=== PATIENT | female | born 1940 | race Caucasian/White ===

== ENCOUNTER → 2017-03-18 | Outpatient (CLI) | payer OTHER ==
[2017-03-18 14:48] LABS: URINE APPEARANCE CLOUDY; URINE BILIRUBIN NEG (NEG); URINE BLOOD NEG (NEG); URINE COLOR YELLOW; URINE GLUCOSE 100 MG/DL (NEG); URINE KETONE NEG (NEG); URINE LEUKOCYTE ESTERASE NEG (NEG); URINE NITRATE NEG (NEG); URINE PH 5.5 (5-8); URINE PROTEIN 3+ (NEG); URINE SPECIFIC GRAVITY 1.024 (1.003-1.035); URINE UROBILINOGEN 0.2 MG/DL (NEG)
[2017-03-18 14:51] LABS: URINE SQUAMOUS EPITHELIAL CELL MOD /[HPF]
[2017-03-18 15:15] LABS: BUN/CREATININE RATIO 8.18; CALCIUM SERUM 8.8 mg/dL (8.4-10.2); CREATININE SERUM 4.4 mg/dL (0.6-1.4); GLOM FILT RATE Estimated 9.1 mL/min (>60); MAGNESIUM 1.9 mg/dL (1.6-3.0); POTASSIUM 4.3 mmol/L (3.5-5.1)
[2017-03-18 15:24] LABS: IRON SERUM 45 ug/dL (28-170); TOTAL IRON BINDING CAPACITY 314 ug/dL (269-535); TRANSFERRIN 224 mg/dL (192-382); TRANSFERRIN SATURATION 14 % (20-50)
[2017-03-18 15:44] LABS: URINE SOURCE CLEAN CATCH
[2017-03-18 15:45] LABS: URINE BACTERIA AUWI 1+ (NEGATIVE)
[2017-03-18 15:46] LABS: U HYALINE CASTS AUWI 0-2 /[LPF]; URINE GRANULAR CAST 0-2 /[HPF]
[2017-03-18 16:17] LABS: CREATININE,RANDOM URINE 184 mg/dL; SODIUM URINE RANDOM 15 mmol/L
[2017-03-18 16:18] LABS: TOTAL PROTEIN,RANDOM URINE 1262 mg/dl (<10)
[2017-03-23 01:22] LABS: CALCIUM (PTHINTACT) 8.7 mg/dL (8.6-10.4)
== END | disposition home or self-care (01) ==
LOC: CLAB 14:07
PROVIDERS: Internal Medicine Nephrology
DX: I12.0 Hypertensive chronic kidney disease with stage 5 chronic kidney disease or end stage renal disease (principal); N18.5 Chronic kidney disease, stage 5; E13.9 Other specified diabetes mellitus without complications; R60.9 Edema, unspecified
CPT/HCPCS: 36415; 80048; 81003; 82043; 82310; 82570; 82728; 83540; 83550; 83735; 83970; 84156; 84300

== ENCOUNTER → 2017-03-23 | Outpatient (CLI) | payer OTHER ==
--- NOTE | ~2017-03-23 | US77 ---
[facility] A Service of [facility] RADIOLOGY TEXT RESULTS PATIENT: ALICIA LONGORIA LOCATION: [facility] : 40 UNIT #: [id number] AGE: [address]: ROLANDO SAHU SEX: F ORDER DR: [id number] [facility] [address] [place], [place] [address] [id number] O MR#: [id number] #: [id number] NAME: ALICIA LONGORIA : 1940 SEX: F STUDY DATE/TIME: 03/23/2017 13:01 UNIT: [facility] ROOM: STUDY DESCRIPTION: US Kidney Bilateral Complete Attending Physician: Rolando Sahu M.D. Referring Physician: Rolando Sahu M.D. Ordering Physician: Tee Bolden Primary Care Physician: Aroldo Barlow M.D. MEDICAL IMAGING REPORT This report is preliminary unless electronic signature is present EXAM Renal ultrasound complete 03/23/2017 HISTORY Chronic kidney disease stage 5, follow up FINDINGS The right kidney measures 7.7 cm while the left kidney measures 8.5 cm in longitudinal dimensions. There is no evidence of hydronephrosis or nephrolithiasis. No cystic or solid mass lesions were seen on either kidney. There is increased renal cortical echogenicity characteristic of medical renal disease. Images of the bladder are normal. IMPRESSION 1. Kidneys are somewhat atrophic bilaterally and demonstrate increased cortical echogenicity and cortical thinning characteristic of medical renal disease. There is no evidence of hydronephrosis. 2. Images of the bladder are normal. Dictated by... Mitch Collazo M.D. THIS IS AN ELECTRONICALLY VERIFIED REPORT Mitch Collazo M.D. at 03/24/2017 2:12 PM KRT/to TD: 03/23/2017 19:57 JOB #: [id number] MEDICAL IMAGING REPORT Page 1 of 1 COPY
== END | disposition home or self-care (01) ==
LOC: CGUS 12:32
DX: N18.5 Chronic kidney disease, stage 5 (principal); N26.1 Atrophy of kidney (terminal); R93.421 Abnormal radiologic findings on diagnostic imaging of right kidney; R93.422 Abnormal radiologic findings on diagnostic imaging of left kidney
CPT/HCPCS: 76770

== ENCOUNTER → 2017-03-30 | Outpatient (CLI) | payer OTHER ==
[2017-03-30 14:56] LABS: BUN/CREATININE RATIO 9.43; CALCIUM SERUM 8.5 mg/dL (8.4-10.2); CREATININE SERUM 5.3 mg/dL (0.6-1.4); GLOM FILT RATE Estimated 7.3 mL/min (>60); MAGNESIUM 1.9 mg/dL (1.6-3.0); POTASSIUM 3.9 mmol/L (3.5-5.1)
== END | disposition home or self-care (01) ==
LOC: CSSDAY 13:30
PROVIDERS: Internal Medicine Nephrology
DX: I12.0 Hypertensive chronic kidney disease with stage 5 chronic kidney disease or end stage renal disease (principal); N18.5 Chronic kidney disease, stage 5; D63.1 Anemia in chronic kidney disease; D50.9 Iron deficiency anemia, unspecified; Z79.899 Other long term (current) drug therapy
CPT/HCPCS: 80048; 83735; 96365; J1756

== ENCOUNTER → 2017-04-08 | Outpatient (CLI) | payer OTHER ==
[2017-04-08 14:43] LABS: BUN/CREATININE RATIO 10.5; CALCIUM SERUM 8.4 mg/dL (8.4-10.2); CREATININE SERUM 5.9 mg/dL (0.6-1.4); GLOM FILT RATE Estimated 6.4 mL/min (>60); POTASSIUM 4.3 mmol/L (3.5-5.1)
== END | disposition home or self-care (01) ==
LOC: CSSDAY 11:00
PROVIDERS: Internal Medicine Nephrology
DX: N18.5 Chronic kidney disease, stage 5 (principal); D63.1 Anemia in chronic kidney disease; E61.1 Iron deficiency
CPT/HCPCS: 80048; 83735; 96365; J1756